=== PATIENT | female | born 1970 | race Caucasian/White ===

== ENCOUNTER 2016-08-09 16:20 | Inpatient (IN) | payer SELFPAY ==
[~2016-08-09] VITALS: Ht 157.5 cm; Wt 62.4 kg
[~2016-08-09 16:20] MED LIST: IBUP-232 PO; LORTA5 PO; ZITH250T PO
[2016-08-09 16:21] VITALS: BP 134/56; PULSE 70; RESP 15; TEMP 98.3; O2SAT 97
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
[2016-08-09] MEDS ORDERED: SODIUM CHLOR 0.9% 1000 ML INJ 1,000 ML IV SCH (17:00)
[2016-08-09] MEDS ORDERED: SODIUM CHLORIDE 0.9% FLUSH 5 ML FLUSH IVF PRN (17:00)
[2016-08-09] MEDS ORDERED: IBUP-232 PO (17:03)
[2016-08-09] MEDS ORDERED: PERC10TA27 PO (17:03)
[2016-08-09] MEDS ORDERED: ROXI30TA14 PO (17:03)
[2016-08-09 17:11] VITALS: BP 121/66; PULSE 68; RESP 20; O2SAT 100
[2016-08-09] MEDS ORDERED: DIATRIZOATE MEGLUM/DIATRIZOATE SOD 9 ML CUP ONE (17:18)
[2016-08-09 17:20] LABS: AUTOMATED NEUTROPHIL # 3.9 TH/MM3 (1.8-7.7); BASOPHIL # 0.1 TH/MM3 (0-0.2); BASOPHIL % 0.9 % (0.0-2.0); EOSINOPHIL # 0.2 TH/MM3 (0-0.4); EOSINOPHIL % 2.3 % (0.0-4.0); HEMATOCRIT 35.6 % (35.0-46.0); HEMO FLAGS DIFF FINAL; LYMPH % 34.4 % (9.0-44.0); LYMPHOCYTE # 2.4 TH/MM3 (1.0-4.8); MEAN CELL VOLUME 90.7 FL (80.0-100.0); MEAN CORPUSCULAR HEMOGLOBIN 31.6 PG (27.0-34.0); MEAN CORPUSCULAR HGB CONC 34.8 % (32.0-36.0); MONO % 7.4 % (0.0-8.0); PLATELET COUNT 664 TH/MM3 (150-450); RED BLOOD COUNT 3.93 MIL/MM3 (4.00-5.30); RED CELL DISTRIBUTION WIDTH 14.1 % (11.6-17.2)
[2016-08-09] MEDS ORDERED: ONDANSETRON HCL 4 MG/2 ML VIAL IV PUSH ONE (17:30)
[2016-08-09] MEDS ORDERED: MORPHINE SULFATE 4 MG/ML INJ IV PUSH ONE ×2 (17:30→20:00)
[2016-08-09 17:33] LABS: APTT (PATIENT) 37.6 SEC (24.3-30.1); INTERNATIONAL NORMALIZED RATIO 1.1 RATIO; PROTHROMBIN TIME - PATIENT 12.6 SEC (9.8-11.6)
[2016-08-09 17:37] LABS: BACTERIA, URINE RARE /hpf; BLOOD, URINE MOD (NEG); COMMENT (UR) CULTURE INDICATED; CULTURE IF INDICATED CULTURE INDICATED; GLUCOSE,URINE NEG (NEG); KETONE, URINE NEG (NEG); MUCUS URINE FEW /lpf (OCC); NITRITE,URINE NEG (NEG); SQUAMOUS EPITHELIAL CELL URINE 8 /hpf (0-5); URINE COLOR YELLOW (YELLW/STRAW)
[2016-08-09 17:46] LABS: BICARBONATE 33.7 MEQ/L (21.0-32.0)
[2016-08-09 18:16] VITALS: BP 114/62; PULSE 57; RESP 18; O2SAT 100
[2016-08-09] MEDS: POTASSIUM CHLOR 20 MEQ PREMIX 100 ML IV SCH ×3 (19:06→23:00)
[2016-08-09 19:10] VITALS: BP 120/60; PULSE 63; RESP 18; O2SAT 99
[2016-08-09 19:23] LABS: CREATINE KINASE 85 U/L (26-192)
[2016-08-09] MEDS ORDERED: IOHEXOL 350 MG/ML 10 ML VIAL (for RAD DIAG) IV ONE (19:23)
--- NOTE | 2016-08-09 19:42 | RADRPT ---
EXAM DATE/TIME: 08/09/2016 19:20 [facility] COMPARISON: No previous studies available for comparison. INDICATIONS : Lower back pain radiating to lower abdomen with nausea and vomiting. IV CONTRAST: 76 cc Omnipaque 350 (iohexol) IV ORAL CONTRAST: Prescribed oral contrast ingested. RADIATION DOSE: 5.25 CTDIvol (mGy) MEDICAL HISTORY : None SURGICAL HISTORY : Tubal ligation. ENCOUNTER: Initial ACUITY: 3 days PAIN SCALE: 4/10 LOCATION: Bilateral lower quadrant TECHNIQUE: Volumetric scanning of the abdomen and pelvis was performed. Using automated exposure control and ad justment of the mA and/or kV according to patient size, radiation dose was kept as low as reasonably achievable to obtain optimal diagnostic quality images. FINDINGS: LOWER LUNGS: The visualized lower lungs are clear. LIVER: Homogeneous density without lesion. There is no dilation of the biliary tree. No calcified gallston es. SPLEEN: Normal size without lesion. PANCREAS: Within normal limits. KIDNEYS: Normal in size and shape. There is no mass, stone or hydronephrosis. ADRENAL GLANDS: Within normal limits. VASCULAR: There is no aortic aneurysm. BOWEL/MESENTERY: The stomach, small bowel, and colon demonstrate no acute abnormality. There is no free intraperitone al air or fluid. ABDOMINAL WALL: Within normal limits. RETROPERITONEUM: There is no lymphadenopathy. BLADDER: No wall thickening or mass. REPRODUCTIVE: Within normal limits. INGUINAL: There is no lymphadenopathy or hernia. MUSCULOSKELETAL: Within normal limits for patient age. CONCLUSION: Normal examination. Rufino Ortega Jr., MD on August 09, 2016 at 19:37 Board Certified Radiologist. This report was verified electronically.
[2016-08-09 21:00] VITALS: BP 124/61; PULSE 63; RESP 18; O2SAT 97
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
[2016-08-09] MEDS ORDERED: ONDANSETRON HCL 4 MG/2 ML VIAL IV PRN (22:15)
[2016-08-09] MEDS: SODIUM CHLORIDE 0.9% FLUSH 5 ML FLUSH FLUSH SCH (22:15)
[2016-08-09] MEDS ORDERED: SODIUM CHLORIDE 0.9% FLUSH 5 ML FLUSH FLUSH PRN (22:15)
[2016-08-09] MEDS ORDERED: NALOXONE HCL 0.4 MG/ML AMP IV PRN (22:15)
[2016-08-09] MEDS ORDERED: ACETAMINOPHEN 325 MG TAB PO PRN (22:15)
[2016-08-09] MEDS: SODIUM CHLOR 0.9% 1000 ML INJ 1,000 ML IV SCH (22:36)
[2016-08-09] MEDS: SULFAMETHOXAZOLE-TRIMETHOPRIM DS 800-160 MG TAB PO SCH (23:21)
[2016-08-09] MEDS: ENOXAPARIN SODIUM 40 MG/0.4 ML SYRINGE SQ SCH (23:22)
[2016-08-09 23:45] LABS: INDIRECT BILIRUBIN 0.2 MG/DL (0.0-0.8); TOTAL BILIRUBIN ADULT 0.3 MG/DL (0.2-1.0)
[2016-08-09 23:51] VITALS: BP 110/60; PULSE 69; RESP 18; TEMP 97.3; O2SAT 96
[2016-08-09] MEDS: ZOLPIDEM TARTRATE 5 MG TAB PO PRN (23:54)
[2016-08-10] VITALS (10 sets, daily range): BP systolic 82–147; BP diastolic 48–74; PULSE 56–71; RESP 16–19; TEMP 96.3–97.9; O2SAT 95–100
[2016-08-10] MEDS: POTASSIUM CHLOR 20 MEQ PREMIX 100 ML IV SCH ×4 (00:17→07:04)
[2016-08-10 03:17] LABS: AMPHETAMINE, URINE NEG (NEG); BARBITURATES, URINE NEG (NEG); COCAINE, URINE NEG (NEG)
[2016-08-10] MEDS: oxyCODONE/ACETAMINOPHEN 10 MG/325 MG TAB PO PRN ×5 (03:22→16:41)
[2016-08-10 03:48] LABS: AUTOMATED NEUTROPHIL # 3.6 TH/MM3 (1.8-7.7); BASOPHIL # 0.1 TH/MM3 (0-0.2); BASOPHIL % 0.9 % (0.0-2.0); EOSINOPHIL # 0.2 TH/MM3 (0-0.4); EOSINOPHIL % 2.6 % (0.0-4.0); HEMATOCRIT 29.3 % (35.0-46.0); HEMO FLAGS DIFF FINAL; LYMPH % 38.8 % (9.0-44.0); LYMPHOCYTE # 2.8 TH/MM3 (1.0-4.8); MEAN CELL VOLUME 91.8 FL (80.0-100.0); MEAN CORPUSCULAR HEMOGLOBIN 31.8 PG (27.0-34.0); MEAN CORPUSCULAR HGB CONC 34.6 % (32.0-36.0); MONO % 8.2 % (0.0-8.0); NEUT % 49.5 % (16.0-70.0); PLATELET COUNT 546 TH/MM3 (150-450); RED CELL DISTRIBUTION WIDTH 14.2 % (11.6-17.2); WHITE BLOOD COUNT 7.3 TH/MM3 (4.0-11.0)
[2016-08-10 03:57] LABS: BICARBONATE 29.8 MEQ/L (21.0-32.0); MAGNESIUM 1.9 MG/DL (1.5-2.5)
[2016-08-10 04:00] LABS: POTASSIUM 2.6 MEQ/L (3.5-5.1)
[2016-08-10] MEDS: SODIUM CHLOR 0.9% 1000 ML INJ 1,000 ML IV SCH (05:41)
[2016-08-10] MEDS ORDERED: POTASSIUM CHLOR 20 MEQ PREMIX 100 ML IV ONE (06:51)
[2016-08-10 08:51] LABS: BICARBONATE 25.1 MEQ/L (21.0-32.0)
[2016-08-10 08:53] LABS: POTASSIUM 2.9 MEQ/L (3.5-5.1)
[2016-08-10] MEDS: SULFAMETHOXAZOLE-TRIMETHOPRIM DS 800-160 MG TAB PO SCH ×2 (08:58→20:13)
[2016-08-10] MEDS: NICOTINE 14 MG/24 HR PATCH TD SCH (08:59)
[2016-08-10] MEDS: SODIUM CHLORIDE 0.9% FLUSH 5 ML FLUSH FLUSH SCH ×2 (08:59→20:12)
[2016-08-10] MEDS ORDERED: POTASSIUM CHLORIDE 20 MEQ CONTROLLED RELEASE TAB PO ONE (09:00)
[2016-08-10 09:06] LABS: CALCIUM-PROTEIN CORRECTED 7.9 MG/DL (8.5-10.1)
[2016-08-10] MEDS: NS + KCL 20 MEQ INJ 1,000 ML IV SCH (12:29)
--- NOTE | 2016-08-10 13:49 | HHI.FPPN ---
Subjective Subjective Patient seen and examined with resident team this morning. Case reviewed and discussed. Please refer to resident H&P for further details regarding history of present illness, ROS, past medical and surgical history, family and social history. In summary, patient is a 45-year-old female admitted with a three-day history of abdominal pain, nausea vomiting and diarrhea. She also notes fever at home and inability to tolerate by mouth. Upon presentation she was noted to have critical hypokalemia. She is seen in her hospital bed this morning, stating she feels minimally better , still complaining of discomfort. Having diarrhea overnight, though this was not witnessed by nursing. She feels like she might have an appetite this morning. [facility] Objective Objective Last Impressions Abdomen/Pelvis CT 08/09/16 0000 Signed Impressions: Service Date/Time: Thursday, August 09, 2016 19:20 - CONCLUSION: Normal examination. Rufino Ortega Jr., MD Laboratory Tests - Abnormals Test 08/09/16 08/09/16 08/10/16 08/10/16 17:00 17:05 03:17 07:10 Urine Turbidity HAZY Urine Protein 30 mg/dL Urine Occult Blood MOD Urine Leukocyte Esterase LARGE Urine RBC 8 /hpf Urine WBC 37 /hpf Urine Bacteria RARE /hpf Urine Mucus FEW /lpf Urine Opiates Screen POS Prothrombin Time 12.6 SEC Activated Partial 37.6 SEC Thromboplast Time Sodium Level 129 MEQ/L Potassium Level 2.0 MEQ/L 2.6 MEQ/L 2.9 MEQ/L Chloride Level 84 MEQ/L Carbon Dioxide Level 33.7 MEQ/L Blood Urea Nitrogen 5 MG/DL 4 MG/DL 4 MG/DL Creatinine 1.34 MG/DL 1.07 MG/DL 1.07 MG/DL Estimat Glomerular Filtration 43 ML/MIN 55 ML/MIN 55 ML/MIN Rate Troponin I LESS THAN 0.02 NG/ML Total Protein 8.8 GM/DL 6.1 GM/DL Albumin 3.3 GM/DL Red Blood Count 3.93 MIL/MM3 3.20 MIL/MM3 Platelet Count 664 TH/MM3 546 TH/MM3 Hemoglobin 10.1 GM/DL Hematocrit 29.3 % Monocytes (%) (Auto) 8.2 % Calcium Level 7.6 MG/DL 7.4 MG/DL Protein Corrected Calcium 7.9 MG/DL Vital Signs 08/09/16 08/09/16 08/09/1616 16:21 17:11 18:16 19:10 Temp 98.3 Pulse 70 68 57 63 Resp 15 20 18 18 B/P 134/56 121/66 114/62 120/60 Pulse Ox 97 100 100 99 O2 Delivery Room Air Room Air Room Air 08/09/16 08/09/16 08/10/16 08/10/16 21:00 23:51 04:08 05:07 Temp 97.3 97.9 Pulse 63 69 71 62 Resp 18 18 18 B/P 124/61 110/60 82/48 Pulse Ox 97 96 95 O2 Delivery Room Air 08/10/16 08/10/16 08/10/16 08/10/16 05:09 07:10 08:00 10:03 Temp 97.5 Pulse 62 63 Resp 17 B/P 103/59 125/70 101/58 Manual Cuff/Auscultation Pulse Ox 97 08/10/16 12:00 Temp 96.7 Pulse 62 Resp 16 B/P 95/55 Pulse Ox 95 Physical exam GENERAL: WDWN, NAD, resting in bed SKIN: Warm and dry. No rashes or lesions HEAD: Normocephalic. Atraumatic EYES: No scleral icterus. No injection or drainage. ENT: OP clear. MMM. NECK: Supple, trachea midline. No JVD or lymphadenopathy. CARDIOVASCULAR: Regular rate and rhythm without audible murmurs, gallops, or rubs. RESPIRATORY: Breath sounds equal and clear to auscultation bilaterally. No accessory muscle use. GASTROINTESTINAL: Abdomen soft, mild diffuse tenderness, worst over suprapubic region, nondistended. MUSCULOSKELETAL: No cyanosis, or edema. No calf tenderness BACK: Nontender without obvious deformity. No CVA tenderness. Neuro: Awake and alert, normal speech. Cranial nerves grossly intact. Motor and sensory intact and equal bilaterally. Assessment Assessment 45-year-old female admitted with: Severe hypokalemia Pyelonephritis Intractable emesis, diarrhea and inability to tolerate by mouth History of MRSA infection Acute kidney injury Thrombocytosis Anemia Hyponatremia PLAN PLAN Empiric antibiotic therapy IV fluids Check C. difficile toxin and stool studies Anti-emetics Serial BMP Replete electrolytes as needed CT abdomen negative Follow urine cultures and blood cultures. Patient seen and examined. Case reviewed and discussed. Agree with plan of care is discussed with me and documented in the resident note Tiffany Leal MD Aug 10, 2016 13:49
--- NOTE | 2016-08-10 13:58 | EKG ---
Date Performed: 08/09/2016 Time Performed: 18:40:07 PTAGE: 45 years EKG: Sinus rhythm WITH FIRST DEGREE AV BLOCK ST DEVIATION AND MODERATE T-WAVE ABNORMALITY, CONSIDER ANTEROLATERAL ISCH EMIA ST DEVIATION AND MODERATE T-WAVE ABNORMALITY, CONSIDER INFERIOR ISCHEMIA ABNORMAL ECG Compared t o PREVIOUS TRACING , the anterolateral ST-T wave changes are new. Clinical correlation to e xclude myocardial ischemia will be important. PREVIOUS TRACIN02/06/2015 19.44 DOCTOR: Maria De Jesus Harrison Interpretating Date/Time 08/10/2016 13:58:07
[2016-08-10 17:27] LABS: BICARBONATE 26.1 MEQ/L (21.0-32.0); POTASSIUM 3.1 MEQ/L (3.5-5.1)
[2016-08-10 19:56] LABS: C. DIFF EPI 027 PRESUMPTIVE NEGATIVE (NEGATIVE); C. DIFF TOXIN PCR NEGATIVE (NEGATIVE)
[2016-08-10] MEDS: ZOLPIDEM TARTRATE 5 MG TAB PO PRN (20:13)
[2016-08-10] MEDS: REMOVE OLD PATCH-NICOTINE TD SCH (20:14)
[2016-08-10] MEDS: ENOXAPARIN SODIUM 40 MG/0.4 ML SYRINGE SQ SCH (23:00)
[2016-08-11] VITALS (9 sets, daily range): BP systolic 121–175; BP diastolic 66–88; PULSE 53–66; RESP 17–19; TEMP 97.1–98; O2SAT 97–100
[2016-08-11] MEDS: NS + KCL 20 MEQ INJ 1,000 ML IV SCH ×4 (00:38→23:18)
[2016-08-11] MEDS: oxyCODONE/ACETAMINOPHEN 10 MG/325 MG TAB PO PRN ×5 (01:45→17:40)
[2016-08-11 08:19] LABS: AUTOMATED NEUTROPHIL # 2.6 TH/MM3 (1.8-7.7); BASOPHIL # 0.1 TH/MM3 (0-0.2); BASOPHIL % 1.4 % (0.0-2.0); EOSINOPHIL # 0.2 TH/MM3 (0-0.4); EOSINOPHIL % 2.9 % (0.0-4.0); HEMATOCRIT 25.8 % (35.0-46.0); HEMO FLAGS DIFF FINAL; LYMPH % 40.3 % (9.0-44.0); LYMPHOCYTE # 2.1 TH/MM3 (1.0-4.8); MEAN CELL VOLUME 92.5 FL (80.0-100.0); MEAN CORPUSCULAR HEMOGLOBIN 31.6 PG (27.0-34.0); MEAN CORPUSCULAR HGB CONC 34.1 % (32.0-36.0); MONO % 5.8 % (0.0-8.0); NEUT % 49.6 % (16.0-70.0); PLATELET COUNT 488 TH/MM3 (150-450); RED BLOOD COUNT 2.78 MIL/MM3 (4.00-5.30); RED CELL DISTRIBUTION WIDTH 14.1 % (11.6-17.2); WHITE BLOOD COUNT 5.3 TH/MM3 (4.0-11.0)
[2016-08-11] MEDS: SULFAMETHOXAZOLE-TRIMETHOPRIM DS 800-160 MG TAB PO SCH (08:21)
[2016-08-11] MEDS: SODIUM CHLORIDE 0.9% FLUSH 5 ML FLUSH FLUSH SCH ×2 (08:22→20:47)
[2016-08-11] MEDS: NICOTINE 14 MG/24 HR PATCH TD SCH (08:22)
[2016-08-11 08:50] LABS: BICARBONATE 25.4 MEQ/L (21.0-32.0)
[2016-08-11] MEDS ORDERED: POTASSIUM CHLORIDE 10 MEQ CONTROLLED RELEASE TAB PO ONE (11:15)
[2016-08-11] MEDS ORDERED: BACT800T5 PO (11:34)
[2016-08-11] MEDS ORDERED: ACET325T PO (11:34)
--- NOTE | 2016-08-11 11:34 | HHI.DCPOC ---
Discharge Care Plan Diagnosis: (1) UTI (lower urinary tract infection) (2) Hypokalemia (3) Hypocalcemia Goals to Promote Your Health * To prevent worsening of your condition and complications * To maintain your health at the optimal level Directions to Meet Your Goals Take your medications as prescribed Follow your dietary instruction Follow activity as directed Keep your appointments as scheduled Take your immunizations and boosters as scheduled If your symptoms worsen call your PCP, if no PCP go to Urgent Care Center or Emergency Room Smoking is Dangerous to Your Health. Avoid second hand smoke Call the 24-hour hour crisis hotline for domestic abuse at Kp Nolasco MD R1 Aug 11, 2016 11:34
[2016-08-11] MEDS ORDERED: NITR100C4 PO (11:41)
[2016-08-11] MEDS: CALCIUM CARBONATE 1.25 GM (CA 500 MG) TAB PO SCH (12:03)
[2016-08-11] MEDS: NITROFURANTOIN MONOHYD MACROCR 100 MG CAP PO SCH ×2 (12:04→17:41)
[2016-08-11] MEDS ORDERED: POTASSIUM CHLORIDE 20 MEQ CONTROLLED RELEASE TAB PO ONE (13:00)
[2016-08-11] MEDS ORDERED: FERR325T PO (16:25)
[2016-08-11 16:27] LABS: REVIEW FLAG FINAL
--- NOTE | 2016-08-11 16:42 | HHI.FPPN ---
Subjective Remarks No acute events overnight.AFVSS except BP running mildly elevated at 130s. Still having persistent pelvic pain, mostly right sided. No flank pain. No fevers or chills. Diarrhea continuing. Objective Vitals Vital Signs Date Time Temp Pulse Resp B/P Pulse Ox O2 Delivery O2 Flow Rate FiO2 08/11/16 12:51 97.1 60 18 152/81 99 08/11/16 10:34 56 08/11/16 09:16 97.3 60 18 121/66 100 08/11/16 07:20 53 08/11/16 05:18 97.7 63 19 157/74 98 08/11/16 00:22 97.6 66 17 153/71 97 08/10/16 20:29 97.1 69 19 147/74 99 08/10/16 20:07 61 I/O 08/10/16 08/10/16 08/10/16 08/11/16 08/11/16 08/11/16 06:59 14:59 22:59 06:59 14:59 22:59 Intake Total 1440 ml 1439 ml 600 ml Output Total 1 ml Balance 1439 ml 1439 ml 600 ml Intake Oral 1440 ml 720 ml 600 ml IV Total 719 ml Output Stool Total 1 ml # Voids 1 5 1 2 2 Result Diagram: 08/11/16 1548 08/11/16 0729 Imaging Last Impressions Abdomen/Pelvis CT 08/09/16 0000 Signed Impressions: Service Date/Time: Tuesday, August 09, 2016 19:20 - CONCLUSION: Normal examination. Rufino Ortega Jr., MD Objective Remarks GEN: WDWN adult white female lying in bed appearing uncomfortable but in NAD RESP: CTAB, no crackles or wheezes CV: NRRR, normal S1/S2, no MRG Abd: Soft, non-distended, mildly tender throughout, moderate-severely tender to right lower groin, no rebound, no guarding MSK: No peripheral cyanosis or edema Medications and IVs Current Medications Medications (Trade) Dose Ordered Sig/Abimbola Route Start Time Stop Time Status Last Admin (Tylenol) 650 mg Q4H PRN PO 08/09/16 22:15 (Zofran Inj) 4 mg Q4H PRN IV 08/09/16 22:15 (Ambien) 5 mg HS PRN PO 08/09/16 22:15 08/10/16 20:13 (NS Flush) 2 ml UNSCH PRN FLUSH 08/09/16 22:15 (NS Flush) 2 ml BID FLUSH 08/09/16 22:15 (Lovenox Inj) 40 mg Q24H SQ 08/09/16 23:00 08/10/16 23:00 (Narcan Inj) 0.4 mg UNSCH PRN IV 08/09/16 22:15 (Percocet 10-325 Mg) 1 tab Q4H PRN PO 08/09/16 22:45 08/11/16 14:20 (Habitrol 14 Mg Patch.24 Hr) 1 patch DAILY TD 08/10/16 09:00 08/11/16 08:22 Miscellaneous Information 1 1 HS TD 08/10/16 21:00 08/10/16 20:14 (NS + KCl 20 Meq Inj) 1,000 ml @ 125 mls/hr Q8H IV 08/10/16 09:00 08/11/16 08:23 (Oscal) 500 mg DAILY PO 08/11/16 11:15 08/11/16 12:03 (Macrobid) 100 mg BIDPC PO 08/11/16 11:45 08/11/16 12:04 A/P Assessment and Plan 45 year old female presented to the ED with: Discharge Planning Home tomorrow if hemoccult negative and H/H stable Problem List: (1) Abdominal pain Status: Acute Plan: Etiology likely cystitis though bleeding ulcer on differential with dropping H/H Abdomen/pelvis CT is unremarkable Urine Cx growing E coli sensitive to Augmentin and Macrobid * Macrobid for UTI * Repeat H/H this PM; if stable likely dilutional * Hemoccult to assess for GIB * Protonix 40 mg PO daily * Zofran PRN N/V (2) UTI (lower urinary tract infection) Status: Acute Plan: UCx growing E coli sensitive to Macrobid * Macrobid 100 mg PO BID for 5 days (3) Hypokalemia Status: Acute Plan: Likely due to diarrhea over past three days K+ on admission 2.0 EKG shows sinus rhythm with first-degree AV block K 3.0 today despite continued repletion * Continue NS with potassium @ 125 cc/hr * Trend BMP, replete orally PRN (4) Diarrhea Status: Acute Plan: Unclear etiology, considering peptic ulcer C diff negative Stool studies negative * Protonix as above * NS @ 125 cc/hr (5) Acute kidney injury Status: Acute Plan: Likely due to dehydration, diarrhea Cr on admission 1.34; baseline ~0.75 Cr today 1.07 * Continue IVF as described * Monitor BMP (6) Chronic pain Status: Chronic Plan: Inconsistent history; yesterday said she had been out of chronic pain meds for some time, today stating she had only been off for a day prior to admission * Percocet as needed for pain * Holding home chronic pain meds for now * F/U with pain management (patient already established) (7) Cigarette nicotine dependence Status: Chronic Plan: 14 mg nicotine patch to be removed nightly (8) History of substance abuse Status: Chronic Plan: UDS positive for opiates, otherwise negative (9) DVT prophylaxis Status: Acute Plan: Lovenox 40 mg sq q24h (10) FEN Status: Acute Plan: NS at 125 mL/hr Continue to monitor and replete electrolytes as necessary Diet regular basic Problem Qualifiers (1) Abdominal pain: Qualified Code: R10.30 - Lower abdominal pain (2) Chronic pain: Qualified Code: G89.21 - Chronic pain due to trauma (3) Cigarette nicotine dependence: Qualified Code: F17.219 - Cigarette nicotine dependence with nicotine-induced disorder Kp Nolasco MD R1 Aug 11, 2016 16:42
[2016-08-11] MEDS: PANTOPRAZOLE SOD 40 MG DELAYED RELEASE TAB PO SCH (17:00)
[2016-08-11] MEDS: ZOLPIDEM TARTRATE 5 MG TAB PO PRN (20:47)
[2016-08-11] MEDS: REMOVE OLD PATCH-NICOTINE TD SCH (20:48)
[2016-08-11] MEDS: ENOXAPARIN SODIUM 40 MG/0.4 ML SYRINGE SQ SCH (23:15)
[2016-08-12 01:30] VITALS: BP 130/58; PULSE 64; RESP 16; TEMP 98.3; O2SAT 98
[2016-08-12 04:01] VITALS: BP 135/70; PULSE 61; RESP 18; TEMP 97.6; O2SAT 98
[2016-08-12 06:59] LABS: AUTOMATED NEUTROPHIL # 2.5 TH/MM3 (1.8-7.7); BASOPHIL # 0.1 TH/MM3 (0-0.2); BASOPHIL % 1.2 % (0.0-2.0); EOSINOPHIL # 0.2 TH/MM3 (0-0.4); EOSINOPHIL % 3.3 % (0.0-4.0); HEMATOCRIT 26.5 % (35.0-46.0); HEMO FLAGS DIFF FINAL; LYMPH % 38.2 % (9.0-44.0); LYMPHOCYTE # 1.8 TH/MM3 (1.0-4.8); MEAN CELL VOLUME 91.6 FL (80.0-100.0); MEAN CORPUSCULAR HEMOGLOBIN 31.6 PG (27.0-34.0); MEAN CORPUSCULAR HGB CONC 34.5 % (32.0-36.0); MONO % 4.9 % (0.0-8.0); NEUT % 52.4 % (16.0-70.0); PLATELET COUNT 485 TH/MM3 (150-450); RED CELL DISTRIBUTION WIDTH 14.1 % (11.6-17.2); WHITE BLOOD COUNT 4.8 TH/MM3 (4.0-11.0)
[2016-08-12 07:26] LABS: BICARBONATE 24.4 MEQ/L (21.0-32.0)
[2016-08-12 07:38] LABS: CALCIUM-PROTEIN CORRECTED 7.9 MG/DL (8.5-10.1)
[2016-08-12] MEDS: PANTOPRAZOLE SOD 40 MG DELAYED RELEASE TAB PO SCH (08:07)
[2016-08-12] MEDS: NITROFURANTOIN MONOHYD MACROCR 100 MG CAP PO SCH ×2 (08:07→16:12)
[2016-08-12] MEDS: NICOTINE 14 MG/24 HR PATCH TD SCH (08:07)
[2016-08-12] MEDS: CALCIUM CARBONATE 1.25 GM (CA 500 MG) TAB PO SCH (08:07)
[2016-08-12] MEDS: NS + KCL 20 MEQ INJ 1,000 ML IV SCH ×3 (08:08→22:59)
[2016-08-12] MEDS: SODIUM CHLORIDE 0.9% FLUSH 5 ML FLUSH FLUSH SCH ×2 (08:08→21:07)
[2016-08-12 08:27] VITALS: BP 136/75; PULSE 59; RESP 18; TEMP 98.2; O2SAT 97
[2016-08-12] MEDS ORDERED: POTASSIUM CHLORIDE 20 MEQ CONTROLLED RELEASE TAB PO ONE ×2 (08:30→17:45)
[2016-08-12] MEDS: DOCUSATE SODIUM 50 MG/SENNA 8.6 MG TAB PO SCH ×2 (08:56→21:07)
[2016-08-12 13:23] VITALS: BP 145/78; PULSE 61; RESP 18; TEMP 97.8; O2SAT 90
[2016-08-12] MEDS ORDERED: POTA20TA5 PO (13:49)
[2016-08-12] MEDS ORDERED: KETOROLAC TROMETHAMINE 30 MG/ML (IVP) VIAL IV PUSH ONE (14:45)
--- NOTE | 2016-08-12 15:24 | HHI.FPPN ---
Subjective Remarks No acute events overnight. AF, BPs fluctuating rather dramatically from normal at 130s to up to 170. Today has severe headache she feels is migraine which she has had in the past (Kp Nolasco MD R1) Objective Vitals Vital Signs Date Time Temp Pulse Resp B/P Pulse Ox O2 Delivery O2 Flow Rate FiO2 08/12/16 13:23 97.8 61 18 145/78 90 08/12/16 08:27 98.2 59 18 136/75 97 08/12/16 04:01 97.6 61 18 135/70 98 08/12/16 01:30 98.3 64 16 130/58 98 08/11/16 20:00 97.4 57 18 175/78 100 08/11/16 19:00 56 08/11/16 17:04 98.0 56 18 151/88 98 I/O 08/11/16 08/11/16 08/11/16 08/12/16 08/12/16 08/12/16 07:00 15:00 23:00 07:00 15:00 23:00 Intake Total 1439 ml 600 ml 480 ml 440 ml Balance 1439 ml 600 ml 480 ml 440 ml Intake Oral 720 ml 600 ml 480 ml 440 ml IV Total 719 ml # Voids 2 2 2 3 # Bowel Movements 1 (Kp Nolasco MD R1) Result Diagram: 08/12/16 0622 08/12/16 0622 Imaging Last Impressions Abdomen/Pelvis CT 08/09/16 0000 Signed Impressions: Service Date/Time: Tuesday, August 09, 2016 19:20 - CONCLUSION: Normal examination. Rufino Ortega Jr., MD Objective Remarks GEN: WDWN adult white female lying in bed appearing uncomfortable but in NAD RESP: CTAB, no crackles or wheezes CV: NRRR, normal S1/S2, no MRG Abd: Soft, non-distended, mildly tender throughout, moderate-severely tender to right lower groin, no rebound, no guarding MSK: No peripheral cyanosis or edema Medications and IVs Current Medications Medications (Trade) Dose Ordered Sig/Abimbola Route Start Time Stop Time Status Last Admin (Tylenol) 650 mg Q4H PRN PO 08/09/16 22:15 (Zofran Inj) 4 mg Q4H PRN IV 08/09/16 22:15 (Ambien) 5 mg HS PRN PO 08/09/16 22:15 08/11/16 20:47 (NS Flush) 2 ml UNSCH PRN FLUSH 08/09/16 22:15 (NS Flush) 2 ml BID FLUSH 08/09/16 22:15 (Lovenox Inj) 40 mg Q24H SQ 08/09/16 23:00 08/11/16 23:15 (Narcan Inj) 0.4 mg UNSCH PRN IV 08/09/16 22:15 (Percocet 10-325 Mg) 1 tab Q4H PRN PO 08/09/16 22:45 08/11/16 17:40 (Habitrol 14 Mg Patch.24 Hr) 1 patch DAILY TD 08/10/16 09:00 08/12/16 08:07 Miscellaneous Information 1 1 HS TD 08/10/16 21:00 08/11/16 20:48 (NS + KCl 20 Meq Inj) 1,000 ml @ 125 mls/hr Q8H IV 08/10/16 09:00 08/11/16 23:18 (Oscal) 500 mg DAILY PO 08/11/16 11:15 08/12/16 08:07 (Macrobid) 100 mg BIDPC PO 08/11/16 11:45 08/12/16 08:07 (Protonix) 40 mg DAILY PO 08/11/16 17:00 08/12/16 08:07 (Roxicodone) 10 mg Q4H PRN PO 08/11/16 22:00 08/12/16 12:15 (Isaura-Colace) 2 tab BID PO 08/12/16 09:00 08/12/16 08:56 (Toradol Inj) 15 mg Q6H PRN IV PUSH 08/12/16 20:45 (Kp Nolasco MD R1) A/P Assessment and Plan 45 year old female presented to the ED with: Discharge Planning Home tomorrow if hemoccult negative and H/H stable (Kp Nolasco MD R1) Attending Attestation Patient seen and examined. Case reviewed and discussed Agree with plan of care as discussed with me and documented in the resident note. Unable to tolerate PO and c/o migraine Diarrhea improving, still requiring repletion of hypokalemia. (Tiffany Leal MD) Problem List: (1) Abdominal pain Status: Acute Plan: Etiology likely cystitis though bleeding ulcer on differential with dropping H/H Abdomen/pelvis CT is unremarkable Urine Cx growing E coli sensitive to Augmentin and Macrobid H/H stable around 9.2 * Macrobid for UTI * Hemoccult to assess for GIB * Zantac 150 PO BID for GI PPX * Zofran PRN N/V (2) UTI (lower urinary tract infection) Status: Acute Plan: UCx growing E coli sensitive to Macrobid * Macrobid 100 mg PO BID for 5 days (3) Migraine Status: Acute Plan: Today with headache and h/o migraine, patient states feels like migraine * Imitrex 50 mg PO once now * Toradol 15 mg IV once now * Toradol 15 mg IV Q6H PRN pain * Tylenol and oxycodone as previously ordered, additional Percocet for breakthrough (4) Hypokalemia Status: Acute Plan: Likely due to diarrhea vs poor PO intake K+ on admission 2.0 EKG shows sinus rhythm with first-degree AV block K 3.0 today despite continued repletion * Continue NS with potassium @ 125 cc/hr * Given 40 mEq PO today AM * Repeat K level today PM, replete with additional PO K as indicated * Trend BMP, replete orally PRN (5) Diarrhea Status: Acute Plan: Unclear etiology, considering peptic ulcer, per nursing staff has not had bowel movement since admission C diff negative Stool studies negative * Zantac as above * NS + KCl @ 125 cc/hr (6) Acute kidney injury Status: Acute Plan: Likely due to dehydration, diarrhea Cr on admission 1.34; baseline ~0.75 Cr today 1.07 * Continue IVF as described * Monitor BMP (7) Chronic pain Status: Chronic Plan: Inconsistent history; yesterday said she had been out of chronic pain meds for some time, today stating she had only been off for a day prior to admission * Tylenol, Toradol, Oxy * Holding home chronic pain meds for now * F/U with pain management (patient already established) (8) Cigarette nicotine dependence Status: Chronic Plan: 14 mg nicotine patch to be removed nightly (9) History of substance abuse Status: Chronic Plan: UDS positive for opiates, otherwise negative (10) DVT prophylaxis Status: Acute Plan: Lovenox 40 mg sq q24h (11) FEN Status: Acute Plan: NS + KCl at 125 mL/hr Continue to monitor and replete electrolytes as necessary Diet regular basic (Kp Nolasco MD R1) Problem Qualifiers (1) Abdominal pain: Qualified Code: R10.30 - Lower abdominal pain (2) Migraine: Qualified Code: G43.009 - Migraine without aura and without status migrainosus , not intractable (3) Chronic pain: Qualified Code: G89.21 - Chronic pain due to trauma (4) Cigarette nicotine dependence: Qualified Code: F17.219 - Cigarette nicotine dependence with nicotine-induced disorder Kp Nolasco MD R1 Aug 12, 2016 15:24 Tiffany Leal MD Aug 12, 2016 15:46
[2016-08-12] MEDS ORDERED: SUMAtriptan SUCCINATE 50 MG TAB PO ONE (15:30)
[2016-08-12 17:18] VITALS: BP 142/88; PULSE 57; RESP 18; TEMP 97.9; O2SAT 100
[2016-08-12 20:00] VITALS: BP 133/81; PULSE 59; RESP 20; TEMP 98.5; O2SAT 96
[2016-08-12] MEDS ORDERED: KETOROLAC TROMETHAMINE 30 MG/ML (IVP) VIAL IV PUSH PRN (20:45)
[2016-08-12] MEDS: REMOVE OLD PATCH-NICOTINE TD SCH (21:00)
[2016-08-12] MEDS: ZOLPIDEM TARTRATE 5 MG TAB PO PRN (21:07)
[2016-08-12] MEDS: FAMOTIDINE 20 MG TAB PO SCH (21:07)
[2016-08-12] MEDS: ENOXAPARIN SODIUM 40 MG/0.4 ML SYRINGE SQ SCH (21:08)
[2016-08-13] VITALS: BP 132/74; PULSE 57; RESP 14; TEMP 99.1; O2SAT 95
[2016-08-13 04:00] VITALS: BP 137/74; PULSE 57; RESP 14; TEMP 97.4; O2SAT 95
[2016-08-13 08:13] VITALS: BP 137/68; PULSE 58; RESP 18; TEMP 98.6; O2SAT 97
[2016-08-13 08:30] VITALS: PULSE 57
[2016-08-13] MEDS: SODIUM CHLORIDE 0.9% FLUSH 5 ML FLUSH FLUSH SCH (09:00)
[2016-08-13] MEDS: NS + KCL 20 MEQ INJ 1,000 ML IV SCH (09:00)
[2016-08-13] MEDS: NICOTINE 14 MG/24 HR PATCH TD SCH (09:05)
[2016-08-13] MEDS: CALCIUM CARBONATE 1.25 GM (CA 500 MG) TAB PO SCH (09:05)
[2016-08-13] MEDS: FAMOTIDINE 20 MG TAB PO SCH (09:05)
[2016-08-13] MEDS: NITROFURANTOIN MONOHYD MACROCR 100 MG CAP PO SCH (09:05)
[2016-08-13] MEDS: DOCUSATE SODIUM 50 MG/SENNA 8.6 MG TAB PO SCH (09:05)
[2016-08-13 09:47] LABS: BICARBONATE 24.6 MEQ/L (21.0-32.0); POTASSIUM 3.5 MEQ/L (3.5-5.1)
[2016-08-13 09:54] LABS: HEMATOCRIT 33.6 % (35.0-46.0)
[2016-08-13 09:55] LABS: REVIEW FLAG FINAL
[2016-08-13 12:00] VITALS: BP 142/83; PULSE 69; RESP 18; TEMP 96.5; O2SAT 97
[2016-08-13] MEDS ORDERED: SUMA50TA2 PO (13:12)
--- NOTE | 2016-08-13 19:56 | HHI.FPPN ---
Subjective Remarks Patient seen around 1000 No acute events overnight. AFVSS. Feeling much improved and wanting to go home. No CP/SOB. (Kp Nolasco MD R1) Objective Vitals Vital Signs Date Time Temp Pulse Resp B/P Pulse Ox O2 Delivery O2 Flow Rate FiO2 08/13/16 12:00 96.5 69 18 142/83 97 08/13/16 08:13 98.6 58 18 137/68 97 08/13/16 04:00 97.4 57 14 137/74 95 08/13/16 00:00 99.1 57 14 132/74 95 08/12/16 22:07 18 08/12/16 20:00 59 08/12/16 20:00 98.5 59 20 133/81 96 I/O 08/12/16 08/12/16 08/12/16 08/13/16 08/13/16 08/13/16 07:00 15:00 23:00 07:00 15:00 23:00 Intake Total 440 ml 360 ml Balance 440 ml 360 ml Intake Oral 440 ml 360 ml IV Total 0 ml # Voids 2 3 4 # Bowel Movements 1 (Kp Nolasco MD R1) Result Diagram: 08/13/16 0812 08/13/16 0812 Imaging Last Impressions Abdomen/Pelvis CT 08/09/16 0000 Signed Impressions: Service Date/Time: Tuesday, August 09, 2016 19:20 - CONCLUSION: Normal examination. Rufino Ortega Jr., MD Objective Remarks GEN: WDWN adult white female lying in bed appearing uncomfortable but in NAD RESP: CTAB, no crackles or wheezes CV: NRRR, normal S1/S2, no MRG Abd: Soft, non-distended, mildly tender throughout, moderate-severely tender to right lower groin, no rebound, no guarding MSK: No peripheral cyanosis or edema (Kp Nolasco MD R1) A/P Assessment and Plan 45 year old female presented to the ED with: Discharge Planning Home today (Kp Nolasco MD R1) Attending Attestation Patient seen and examined. Case reviewed and discussed Agree with plan of care as discussed with me and documented in the resident note. (Tiffany Leal MD) Problem List: (1) Abdominal pain Status: Acute Plan: Etiology likely cystitis though bleeding ulcer on differential with dropping H/H Abdomen/pelvis CT is unremarkable Urine Cx growing E coli sensitive to Augmentin and Macrobid H/H stable around 9.2 Hemoccult negative * Macrobid for UTI * Repeat CBC in 2-3 days * Zofran ODT PRN (2) UTI (lower urinary tract infection) Status: Acute Plan: UCx growing E coli sensitive to Macrobid * Macrobid 100 mg PO BID for 5 days (3) Migraine Status: Acute Plan: Headache much improved today * Imitrex 50 mg PO PRN #10 * Tylenol 650 mg PO Q6H PRN (4) Hypokalemia Status: Acute Plan: Likely due to diarrhea vs poor PO intake K+ on admission 2.0 EKG shows sinus rhythm with first-degree AV block K 3.0 today despite continued repletion * Discharge with PO K 20 mEq daily for 10 days * Repeat BMP in 2-3 days (5) Diarrhea Status: Resolved Plan: Now resolved per patient and staff C diff negative Stool studies negative Hemoccult negative * See "Abdominal pain" (6) Acute kidney injury Status: Acute Plan: Likely due to dehydration, diarrhea Cr on admission 1.34; baseline ~0.75 Cr today 1.17 * Encourage hydration on D/C (7) Chronic pain Status: Chronic Plan: Inconsistent history; yesterday said she had been out of chronic pain meds for some time, today stating she had only been off for a day prior to admission * Resume home pain meds on discharge * Rx Tylenol 650 Q6H PRN * F/U with pain management (8) Cigarette nicotine dependence Status: Chronic Plan: 14 mg nicotine patch to be removed nightly (9) History of substance abuse Status: Chronic Plan: UDS positive for opiates, otherwise negative (10) DVT prophylaxis Status: Acute Plan: Lovenox 40 mg sq q24h (11) FEN Status: Acute Plan: NS + KCl at 125 mL/hr Continue to monitor and replete electrolytes as necessary Diet regular basic (Kp Nolasco MD R1) Problem Qualifiers (1) Abdominal pain: Qualified Code: R10.30 - Lower abdominal pain (2) Migraine: Qualified Code: G43.009 - Migraine without aura and without status migrainosus , not intractable (3) Chronic pain: Qualified Code: G89.21 - Chronic pain due to trauma (4) Cigarette nicotine dependence: Qualified Code: F17.219 - Cigarette nicotine dependence with nicotine-induced disorder Kp Nolasco MD R1 Aug 13, 2016 19:55 Tiffany Leal MD Aug 14, 2016 16:38
--- NOTE | 2016-08-13 20:44 | HHI.DS ---
Discharge Summary Admission Date Aug 09, 2016 at 7:47 pm Discharge Date: Aug 13, 2016 Admitting Diagnosis HYPOKALEMIA; GENERALIZED WEAKNESS; N/V; UTI (1) Abdominal pain Diagnosis: Principal Plan: Etiology likely cystitis though bleeding ulcer on differential with dropping H/H Abdomen/pelvis CT is unremarkable Urine Cx growing E coli sensitive to Augmentin and Macrobid H/H stable around 9.2 Hemoccult negative * Macrobid for UTI * Repeat CBC in 2-3 days * Zofran ODT PRN (2) UTI (lower urinary tract infection) Diagnosis: Principal Plan: UCx growing E coli sensitive to Macrobid * Macrobid 100 mg PO BID for 5 days (3) Migraine Diagnosis: Secondary Plan: Headache much improved today * Imitrex 50 mg PO PRN #10 * Tylenol 650 mg PO Q6H PRN (4) Hypokalemia Diagnosis: Principal Plan: Likely due to diarrhea vs poor PO intake K+ on admission 2.0 EKG shows sinus rhythm with first-degree AV block K 3.0 today despite continued repletion * Discharge with PO K 20 mEq daily for 10 days * Repeat BMP in 2-3 days (5) Diarrhea Diagnosis: Secondary Plan: Now resolved per patient and staff C diff negative Stool studies negative Hemoccult negative * See "Abdominal pain" (6) Acute kidney injury Diagnosis: Secondary Plan: Likely due to dehydration, diarrhea Cr on admission 1.34; baseline ~0.75 Cr today 1.17 * Encourage hydration on D/C (7) Chronic pain Diagnosis: Secondary Plan: Inconsistent history; yesterday said she had been out of chronic pain meds for some time, today stating she had only been off for a day prior to admission * Resume home pain meds on discharge * Rx Tylenol 650 Q6H PRN * F/U with pain management Brief History 45 year old female with PMH of chronic back pain on percocet and roxicodone, and anxiety presents to ED with complaints of abdominal pain. Patient also states she has had significant nausea and vomiting over the past three days and has been unable to keep any PO foods down. She also reports watery diarrhea over the past three days. She states the first symptom that began was her abdominal pain three days ago, states it is bilateral lower abdomen that radiates to both sides of her low back. She describes it as a pressure-like pain and states it is constant. Denies intermittent pain or pain exacerbated with urination or with bowel movements. Denies melena or hematochezia, states her diarrhea has sometimes been green; however mostly clear and watery. Also endorses abdominal cramps and bloating, denies flatulence. Denies any changes to her diet recently. No recent travels. No other sick contacts with similar symptoms. Denies ever having symptoms like this before. States she took her temperature with a digital oral thermometer three days ago and her temperature was 103.1F. She states this was her only fever. However she reports chills since then along with night sweats. Denies shortness of breath, difficulty breathing, cough. Denies hematemesis. She states her vomitus has mostly been clear however at times has been bright green. Denies chest pain. CBC/BMP: 08/13/16 0812 08/13/16 0812 Significant Findings Laboratory Tests Test 08/11/16 08/11/16 08/12/16 08/13/16 07:29 15:48 06:22 08:12 Red Blood Count 2.78 MIL/MM3 2.90 MIL/MM3 (4.00-5.30) (4.00-5.30) Hemoglobin 8.8 GM/DL 9.1 GM/DL 9.2 GM/DL 11.0 GM/DL (11.6-15.3) (11.6-15.3) (11.6-15.3) (11.6-15.3) Hematocrit 25.8 % 27.0 % 26.5 % 33.6 % (35.0-46.0) (35.0-46.0) (35.0-46.0) (35.0-46.0) Platelet Count 488 TH/MM3 485 TH/MM3 (150-450) (150-450) Potassium Level 3.0 MEQ/L 3.0 MEQ/L (3.5-5.1) (3.5-5.1) Blood Urea Nitrogen 3 MG/DL (7-18) 5 MG/DL (7-18) 4 MG/DL (7-18) Creatinine 1.07 MG/DL 1.17 MG/DL (0.50-1.00) (0.50-1.00) Estimat Glomerular Filtration 55 ML/MIN (>89) 61 ML/MIN (>89) 50 ML/MIN (>89) Rate Calcium Level 7.4 MG/DL 7.4 MG/DL 7.8 MG/DL (8.5-10.1) (8.5-10.1) (8.5-10.1) Protein Corrected Calcium 8.0 MG/DL 7.9 MG/DL (8.5-10.1) (8.5-10.1) Total Protein 6.0 GM/DL 6.2 GM/DL (6.4-8.2) (6.4-8.2) Random Glucose 109 MG/DL (74-106) Imaging Last Impressions Abdomen/Pelvis CT 08/09/16 0000 Signed Impressions: Service Date/Time: Thursday, August 09, 2016 19:20 - CONCLUSION: Normal examination. Rufino Ortega Jr., MD PE at Discharge GEN: WDWN adult white female lying in bed appearing uncomfortable but in NAD RESP: CTAB, no crackles or wheezes CV: NRRR, normal S1/S2, no MRG Abd: Soft, non-distended, mildly tender throughout, moderate-severely tender to right lower groin, no rebound, no guarding MSK: No peripheral cyanosis or edema Hospital Course Admitted for abdominal pain and N/V. Found to have UTI. Electrolyte abnormalities from poor PO intake, subsequently corrected with IVF and control of N/V. UTI treated with Macrobid. Mild anemia likely dilutional (hemoccult negative), thrombocytosis. Follow up labs in 2-3 days as noted below. Pt Condition on Discharge: Good Discharge Disposition: Discharge Home Discharge Instructions DIET: Follow Instructions for: As Tolerated, No Restrictions Activities you can perform: Regular-No Restrictions Follow up Referrals: PCP Follow-up - 08/25/16 with Roxana Driscoll MD New Orders: CALCIUM - 2-3 Days CBC NO DIFF - 2-3 Days COMP MET PROF (CMP) - 2-3 Days New Medications: Ferrous Sulfate (Ferrous Sulfate) 325 Mg Tab 325 MG PO DAILY Nutritional Supplement #30 Ref 0 TAB Nitrofurantoin Monohydrate Macrocrystals (Nitrofurantoin Monohydrate Macrocrystals) 100 Mg Cap 100 MG PO BID Infection #10 Ref 0 CAP Potassium Chloride Microencaps (Potassium Chloride Microencaps) 20 Meq Tab 20 MEQ PO DAILY Electrolyte Replacement #10 Ref 0 TAB Sumatriptan (Sumatriptan) 50 Mg Tab 50 MG PO ONCE If a satisfactory response has not been obtained at 2 hours, a second dose may be administered PRN MIGRAINE HEADACHE #10 Ref 0 TAB Acetaminophen (Acetaminophen) 325 Mg Tab 1-2 TAB PO Q4H Take no more than 8 total tablets in 24 hours PRN PAIN #30 TAB Continued Medications: Ibuprofen (Ibuprofen) 600 Mg Tab 600 MG PO Q4HR PRN Pain/Inflammation #40 Ref 0 TAB Oxycodone (Roxicodone) 30 Mg Tab 30 MG PO q3h PRN PAIN Ref 0 TAB Oxycodone-Acetaminophen (Percocet) 10-325 mg Tab 1 TAB PO Q4H PRN PAIN Ref 0 TAB Kp Nolasco MD R1 Aug 13, 2016 8:44 pm
[2016-08-20] MEDS ORDERED: BACT800T5 PO (14:44)
== END 2016-08-13 14:29 | disposition home or self-care (01) | DRG 690 ==
LOC: NEPA 16:20 → NEDA 19:47 → N05B 23:00
PROVIDERS: ADMIT Family Medicine; ATTEND Family Medicine
DX: N30.90 Cystitis, unspecified without hematuria (principal); N17.9 Acute kidney failure, unspecified; E87.1 Hypo-osmolality and hyponatremia; E87.6 Hypokalemia; E86.0 Dehydration; R19.7 Diarrhea, unspecified; G43.009 Migraine without aura, not intractable, without status migrainosus; F17.210 Nicotine dependence, cigarettes, uncomplicated; B96.20 Unspecified Escherichia coli [E. coli] as the cause of diseases classified elsewhere; D64.9 Anemia, unspecified; I44.0 Atrioventricular block, first degree; D47.3 Essential (hemorrhagic) thrombocythemia; Z86.14 Personal history of Methicillin resistant Staphylococcus aureus infection; Z88.1 Allergy status to other antibiotic agents; Z88.0 Allergy status to penicillin
CPT/HCPCS: 74177; 76937; 80048; 80076; 80301; 81001; 82272; 82550; 83690; 83735; 84132; 84155; 84484; 85014; 85018; 85025; 85610; 85730; 87040; 87077; 87086; 87186; 87205; 87328; 87329; 87493; 93005; 96361; 96374; 96375; G0479; J1650; J1885; J2270; J2405; J3480; J7030; Q9963; Q9967

== ENCOUNTER → 2016-08-26 | Outpatient (CLI) | payer SELFPAY ==
[~2016-08-26] MED LIST changes: +ACET325T PO; +BACT800T5 PO; +FERR325T PO; -LORTA5 PO; +POTA20TA5 PO; -ZITH250T PO
[2016-08-26 11:48] LABS: HEMATOCRIT 36.6 % (35.0-46.0); MEAN CELL VOLUME 92.2 FL (80.0-100.0); MEAN CORPUSCULAR HEMOGLOBIN 30.9 PG (27.0-34.0); MEAN CORPUSCULAR HGB CONC 33.5 % (32.0-36.0); PLATELET COUNT 459 TH/MM3 (150-450); RED BLOOD COUNT 3.97 MIL/MM3 (4.00-5.30); RED CELL DISTRIBUTION WIDTH 14.5 % (11.6-17.2); REVIEW FLAG FINAL; WHITE BLOOD COUNT 5.3 TH/MM3 (4.0-11.0)
[2016-08-26 12:02] LABS: ALT (GPT) 25 U/L (10-53); ANION GAP 8 MEQ/L (5-15); AST (GOT) 18 U/L (15-37); BICARBONATE 24.6 MEQ/L (21.0-32.0); BLOOD UREA NITROGEN 9 MG/DL (7-18); CHLORIDE 102 MEQ/L (98-107); GLOMERULAR FILTRATION RATE 47 ML/MIN (>89); GLUCOSE,FASTING 94 MG/DL (74-99); POTASSIUM 4.5 MEQ/L (3.5-5.1); SODIUM (NA) 135 MEQ/L (136-145)
[2016-08-26 12:04] LABS: ALKALINE PHOSPHATASE 69 U/L (45-117); TOTAL BILIRUBIN ADULT 0.2 MG/DL (0.2-1.0)
== END ==
LOC: CLAB 11:11
PROVIDERS: ATTEND Physician Assistant Medical
DX: E87.6 Hypokalemia (principal); N39.0 Urinary tract infection, site not specified
CPT/HCPCS: 36415; 80053; 85027